=== PATIENT | male | born 1955 | race Caucasian/White ===

== ENCOUNTER 2016-12-27 11:00 | Observation (INO) ==
--- NOTE | 2016-12-27 11:30 | Emergency Department Note ---
Disposition Clinical Impression: Acute cholecystitis Disposition: Admitted As Inpatient Condition: Good Referrals: NO,PCP [Primary Care Provider] - Forms: Work/School Release, ED Satisfaction Letter Abdominal Pain HPI - General Chief Complaint: ED Abdominal Pain Stated Complaint: RUQ abdominal pain/?Gallbladder Time Seen by Provider: 12/27/16 11:26 Source: patient Mode of arrival: ambulatory Limitations: no limitations Nursing Notes Reviewed: Yes Vital Signs Reviewed: Yes - History of Present Illness Pt Subjective Complaint: abdominal pain Onset (ago): day(s) (5) Consistency: constant Location: RUQ Pain Scale: 7 Quality: aching Radiation: none Migration to: no migration Improves with: medication (tylenol) Worsens with: eating Associated symptoms: Reports: nausea Treatments prior to arrival: OTC medications - Related Data Home Medications Medication Instructions Recorded Confirmed Venlafaxine HCl [Venlafaxine HCl 07/30/15 ER] buPROPion HCl [Zyban] 07/30/15 diazePAM [Valium] 07/30/15 Previous Rx's Medication Instructions Recorded Amoxicillin 875 mg PO BID #20 tablet 07/30/15 DiphenhydraMINE [Benadryl] 25 mg PO Q6HR PRN #20 capsule 07/30/15 GuaiFENesin/Codeine [Robitussin 5 ml PO Q6HR PRN #120 ml 07/30/15 w/Codeine] Allergies Allergy/AdvReac Type Severity Reaction Status Date / Time No Known Allergies Allergy Verified 12/27/16 11:20 All systems ED: reviewed and negative except as stated. Constitutional: Denies: fever, chills, weakness Cardiovascular: Denies: chest pain Respiratory: Denies: cough Gastrointestinal: Denies: vomiting, hematemesis, melena Abdominal Pain PMH - Past Medical History Medical history: Reports: no medical history Male Surgical History: Reports: other Psychiatric history: Reports: anxiety, depression - Social History Smoking status: Never smoker Alcohol use: Reports: occasionally Drug use: Reports: none Physical Exam - General Limitations: no limitations General appearance: alert - Head Head exam: atraumatic, normocephalic, normal inspection - Eye Eye exam: Present: normal appearance, PERRL, EOMI - Expanded Eye Exam Pupils: Left: reactive - ENT ENT exam: normal exam, normal oropharynx, mucous membranes moist - Expanded ENT Exam External ear exam: Present: normal external inspection Mouth exam: Present: normal external inspection Teeth exam: Present: normal inspection Throat exam: Present: normal inspection - Neck Neck exam: Present: normal inspection, full ROM, trachea midline - Chest Chest inspection: Present: normal inspection, symmetric chest wall rise - Respiratory Respiratory exam: Present: normal lung sounds bilaterally - Cardiovascular Cardiovascular exam: Present: regular rate, normal rhythm, normal heart sounds - Abdominal Exam Abdominal exam: Present: soft, guarding, normal bowel sounds Abdominal tenderness: Present: RUQ, moderate - Extremities Exam Extremities exam: Present: normal inspection, full ROM. Absent: tenderness, pedal edema - Expanded Upper Extremity Exam Shoulder exam: Present: normal inspection, full ROM Arm exam: Present: normal inspection, full ROM Elbow exam: Present: normal inspection, full ROM Forearm/Wrist exam: Present: normal inspection, full ROM Hand exam: Present: normal inspection, full ROM Vascular exam: Normal: capillary refill, radial pulse - Expanded Lower Extremity Exam Hip/Pelvis exam: Present: normal inspection, full ROM Upper leg exam: Present: normal inspection, full ROM Knee exam: Present: normal inspection, full ROM Lower leg exam: Present: normal inspection, full ROM Ankle exam: Present: normal inspection, full ROM Foot/toe exam: Present: normal inspection, full ROM Neurovascular/Tendon exam: Absent: motor deficit, sensory deficit, tendon deficit - Back Exam Back exam: Present: normal inspection, full ROM. Absent: tenderness - Neurological Exam Neurological exam: Present: alert, oriented X3 - Expanded Neurological Exam Patient oriented to: Present: person, place, time Coma Scale Eye Opening: Spontaneous Coma Scale Motor Response: Obeys Commands Coma Scale Verbal Response: Oriented Coma Scale Total: 15 - Psychiatric Psychiatric exam: Present: normal affect, normal mood - Skin Skin exam: Present: warm, dry, intact, normal color Course Vital Signs Temperature 98.3 F 12/27/16 11:20 Pulse Rate 92 12/27/16 11:20 Respiratory Rate 20 12/27/16 11:20 Blood Pressure 136/85 12/27/16 11:20 O2 Sat by Pulse Oximetry 97 12/27/16 11:20 Temperature 98.3 F 12/27/16 11:20 Pulse Rate 92 12/27/16 11:20 Respiratory Rate 20 12/27/16 11:20 Blood Pressure 136/85 12/27/16 11:20 O2 Sat by Pulse Oximetry 97 12/27/16 11:20 Oxygen Delivery Oxygen Delivery Room Air Abdominal Pain - Differential Diagnosis Differential Diagnosis: Likely: abdominal pain non-specific, constipation, pancreatitis - Medical Records Medical records reviewed: Yes I reviewed the patient's medical records. - Lab Data Lab results reviewed: Yes I reviewed the patient's lab results. Result diagrams: 12/27/16 12:05 12/27/16 12:05 Lab Results 12/27/16 12/27/16 12/27/16 Range/Units 12:05 12:05 12:05 WBC 8.5 (4.3-11.1) K/mcL RBC 5.02 (4.19-5.50) M/mcL Hgb 14.3 (12.9-16.9) g/dL Hct 43.5 (37.5-50.1) % MCV 86.7 (83.0-100.0) fL MCH 28.5 (28.0-33.3) pg MCHC 32.9 (31.6-35.5) g/dL RDW 11.9 (11.5-14.5) % Plt Count 173 (140-400) K/mcL MPV 8.8 L (9.4-12.4) fL Immature Gran % 0.5 (0-4) % Seg Neutrophils % 75.0 % Lymphocytes % 13.2 % Monocytes % 8.9 % Eosinophils % 2.2 % Basophils % 0.2 % Neutrophils # 6.4 (1.6-8.9) K/mcL Lymphocytes # 1.1 (0.6-4.6) K/mcL Monocytes # 0.8 (0.0-1.3) K/mcL Eosinophils # 0.2 (0.0-0.6) K/mcL Basophils # 0.0 (0.0-0.2) K/mcL PT 11.8 (9.4-12.1) Seconds INR 1.1 APTT 28.3 (26.0-36.0) Seconds Sodium 138 (136-145) mEq/L Potassium 4.3 (3.5-4.5) mEq/L Chloride 105 (98-109) mEq/L Carbon Dioxide 29 (19-29) mEq/L BUN 12 (8-26) mg/dL Creatinine 0.95 (0.72-1.25) mg/dL Est GFR ( Amer) > 60 (> 60) Est GFR (Non-Af Amer) > 60 (> 60) BUN/Creatinine Ratio 13 (6-26) Glucose 105 H (70-99) mg/dL Calculated Osmolality 286 (280-300) Calcium 9.4 (8.6-10.8) mg/dL Total Bilirubin 0.7 (0.2-1.2) mg/dL Direct Bilirubin 0.3 (0.0-0.5) mg/dL Indirect Bilirubin 0.4 (0.0-1.2) mg/dL AST 17 (5-34) Units/L ALT 16 (0-55) Units/L Alkaline Phosphatase 80 (38-126) Units/L Serum Total Protein 7.2 (6.0-8.3) g/dL Albumin 3.4 L (3.5-5.0) g/dL Globulin 3.8 H (2.4-3.5) g/dL Albumin/Globulin Ratio 0.9 L (1.1-2.2) Amylase 40 (25-125) Units/L Lipase 21 (8-78) Units/L
[2016-12-27 12:10] LABS: Basophils % 0.2 %; Eosinophils # 0.2 K/mcL (0.0-0.6); Eosinophils % 2.2 %; Hematocrit 43.5 % (37.5-50.1); Hemoglobin 14.3 g/dL (12.9-16.9); Immature Granulocytes % 0.5 % (0-4); Lymphocytes # 1.1 K/mcL (0.6-4.6); Lymphocytes % 13.2 %; Mean Corpuscular HGB Conc 32.9 g/dL (31.6-35.5); Mean Corpuscular Hemoglobin 28.5 pg (28.0-33.3); Mean Corpuscular Volume 86.7 fL (83.0-100.0); Mean Platelet Volume 8.8 fL (9.4-12.4); Monocytes # 0.8 K/mcL (0.0-1.3); Monocytes % 8.9 %; Neutrophils # 6.4 K/mcL (1.6-8.9); Platelet Count 173 K/mcL (140-400); Red Blood Count 5.02 M/mcL (4.19-5.50); Red Cell Distribution Width 11.9 % (11.5-14.5)
[2016-12-27 12:17] LABS: INR 1.1; Prothrombin Time 11.8 Seconds (9.4-12.1)
[2016-12-27 12:19] LABS: Activated Partial Thrombo Time 28.3 Seconds (26.0-36.0)
[2016-12-27 12:24] LABS: Alanine Aminotransferase 16 Units/L (0-55); Albumin 3.4 g/dL (3.5-5.0); Albumin/Globulin Ratio 0.9 (1.1-2.2); Alkaline Phosphatase 80 Units/L (38-126); Amylase 40 Units/L (25-125); Aspartate Amino Transferase 17 Units/L (5-34); BUN/Creatinine Ratio 13 (6-26); Bilirubin,Direct 0.3 mg/dL (0.0-0.5); Bilirubin,Indirect 0.4 mg/dL (0.0-1.2); Bilirubin,Total 0.7 mg/dL (0.2-1.2); Blood Urea Nitrogen 12 mg/dL (8-26); Calcium 9.4 mg/dL (8.6-10.8); Carbon Dioxide 29 mEq/L (19-29); Chloride 105 mEq/L (98-109); Globulin 3.8 g/dL (2.4-3.5); Glucose 105 mg/dL (70-99); Lipase 21 Units/L (8-78); Osmolality,Calculated 286 (280-300); Potassium 4.3 mEq/L (3.5-4.5); Sodium 138 mEq/L (136-145); Total Protein 7.2 g/dL (6.0-8.3); eGFR For African Americans > 60 (> 60); eGFR For Non-African Americans > 60 (> 60)
[2016-12-27 13:25] LABS: Bilirubin,Urine Negative (Negative); Blood,Urine Negative (Negative); Clarity,Urine Clear (Clear); Color,Urine Yellow (Yellow); Glucose,Urine (UA) Normal (Normal); Ketones,Urine Negative (Negative); Leukocyte Esterase,Urine Negative (Negative); Nitrite,Urine Negative (Negative); Protein,Urine Negative (Neg-Trace); Specific Gravity,Urine 1.022 (1.010-1.025); Urobilinogen,Urine Normal (Normal)
--- NOTE | 2016-12-27 14:03 | Anesthesia Evaluation PreOp ---
Date of Encounter: 12/27/16 Time of Encounter: 14:16 - Past History Planned Operation: lap caity Cardiac History: Denies any Significant Hx Pulmonary History: Denies Any Significant HX YARD LABORER History: Denies Any Significant HX Other Medical History: Other (anxiety and depression) Anesthesia History: No Prior Anesthetic Complications, Past Anesthesia (AKS) Alcohol Use: occasionally Drug use: none Medications and Allergies Venlafaxine HCl [Venlafaxine HCl ER] 150 mg PO DAILY 07/30/15 [History] buPROPion HCl [Zyban] 150 mg PO DAILY 07/30/15 [History] Allergies No Known Allergies Allergy (Verified 12/27/16 11:20) - Meds/Allergy Pre-op Review Medications Reviewed: Yes Allergies Reviewed: Yes Beta Blockers on Current Med List: No Anesthesia Results - Labs 12/27/16 12:05 12/27/16 12:05 Anesthesia Exam Selected Entries 12/27/16 11:20 Temperature 98.3 F Pulse Rate 92 Respiratory Rate 20 Blood Pressure 136/85 O2 Sat by Pulse Oximetry 97 Weight: 104kg - HEENT Pupil (Motor): EOMI Mallampati: I Teeth: Normal Oral Opening: Greater than 3 - YARD LABORER LOC: Oriented YARD LABORER Motor: Normal RUE, Normal LUE, Normal RLE, Normal LLE, Normal Face YARD LABORER Sensory: Normal: RUE, LUE, RLE, LLE, Face - Cardiac Rhythm: Regular Murmur: None - Pulmonary Breath Sounds: bilateral Clear Respiratory Effort: Symmetrical Anesthesia Assess/Plan ASA Score: 2 Modified Lackey Scale for Level of Consciousness: Cooperative, oriented, and tranquil Anesthetic Plan: General Monitoring Plan: Standard Monitors Recovery Plan: PACU (Discussed risks of GA, questions answered. Agrees to proceed.)
[2016-12-27] MEDS ORDERED: *HR* FentaNYL (PF) 100 MCG/2 ML VIAL ONE (14:13)
[2016-12-27] MEDS ORDERED: *HR* Propofol 200 MG/20 ML VIAL IVP ONE (14:13)
[2016-12-27] MEDS ORDERED: *HR* Midazolam HCl 2 MG/2 ML VIAL ONE (14:13)
[2016-12-27] MEDS ORDERED: Lidocaine -MPF 4% 5 ML AMPUL ONE (14:18)
[2016-12-27] MEDS ORDERED: Naloxone 0.4 MG/ML INJ IVP PRN ×2 (14:21→17:42)
[2016-12-27] MEDS ORDERED: Ondansetron 4 MG/2 ML VIAL IVP PRN ×2 (14:21→17:42)
[2016-12-27] MEDS ORDERED: Acetaminophen 325 MG TABLET PO PRN ×2 (14:24→17:42)
[2016-12-27] MEDS ORDERED: *HR* HYDROmorphone (PF) 1 MG/ML SYRINGE IVP PRN ×3 (14:24→17:42)
[2016-12-27] MEDS ORDERED: *HR* OxyCODONE/APAP 5/325 TABLET PO PRN (14:24)
[2016-12-27] MEDS ORDERED: 0.9 % Sodium Chloride 1,000 ML IVC SCH (14:30)
--- NOTE | 2016-12-27 14:30 | General Surg History&Physical ---
Date of Encounter: 12/27/16 Time of Encounter: 13:30 Assessment and Plan (1) Acute cholecystitis Current Visit: Yes Status: Acute The assessment and plan as outlined above was discussed with the patient and/or family members who expressed understanding and agreement. All questions were answered. Nothing by mouth IV fluids IV antibiotics- Zosyn Supportive care and pain control Risks, benefits, alternatives, expected outcomes of and reviewed with the patient is in agreement to proceed to the operating room in the next [address] Finch for laparoscopic cholecystectomy with cholangiogram Incentive spirometer every 1 hour while awake PPI daily Ambulates hallways 3 times a day as tolerated (2) Cholelithiases Current Visit: Yes Status: Chronic The assessment and plan as outlined above was discussed with the patient and/or family members who expressed understanding and agreement. All questions were answered. Qualifiers: Cholelithiasis location: gallbladder Cholecystitis presence: with cholecystitis Cholecystitis acuity: acute Biliary obstruction: without biliary obstruction Qualified Code(s): K80.00 - Calculus of gallbladder with acute cholecystitis without obstruction (3) Anxiety and depression Current Visit: Yes Status: Acute The assessment and plan as outlined above was discussed with the patient and/or family members who expressed understanding and agreement. All questions were answered. Resume home medication regimen (4) DVT prophylaxis Current Visit: Yes Status: Acute The assessment and plan as outlined above was discussed with the patient and/or family members who expressed understanding and agreement. All questions were answered. Intermittent compressions stockings to bilateral lower extremities for DVT prophylaxis Ambulate hallways 3 times a day with assistance History of Present Illness Chief complaint: RUQ abdominal pain HPI: Mr. Mckinney is a 61 year old male with a past medical history significant for anxiety and depression. He presented to the emergency department today with complaints of right upper quadrant abdominal pain. He reports that the pain initially started 4 days ago. He states that the pain was severe and was located in his right upper quadrant and radiated straight through into his back. He describes this as a sharp and stabbing pain which lasted for approximately 8 hours. He states that the pain significantly improved until early this morning when he began to have sharp and stabbing pains again. He states he has had 5 episodes similar to this in the past. He does report that the episodes are becoming more frequent and intense over time. He reports nausea but denies any vomiting. Denies any fevers or chills. Denies any changes in bowel habits. Denies any unexplained weight loss. Denies any shortness of breath or chest pain. He does report that is difficult to take a deep breath when he is having severe abdominal pain. Denies any difficulty with urination or changes in the color of his urine. He has had an ultrasound completed which shows evidence of gallbladder wall thickening and pericholecystic fluid. We will admit the patient to the hospital for further workup and treatment. Past Med Surg Social Fam HX - Past Medical History Source: patient Medical history: no medical history Psychiatric history: anxiety, depression - Past Surgical History Surgical History: orthopedic, other (right knee scope), other (tooth extraction , repair of left tear duct) - Social History Smoking Status: Never smoker Smokeless Tobacco Status: No Alcohol use: occasionally (social drinking 1-2 times per month) Drug use: none Current living situation: Home - Independent Activity Level: Independent ambulation - Family History Mother Living Status: Age at : 64 Cause of : strangulated hernia and necrotic bowel Father Age at : 84 Cause of : stomach cancer Hx Family Cancer: Yes (stomach) Brother Living Status: (2 brothers ) Cause of : brother X 2 Hx Family Cardiac Disorders: Yes Hx Family Psychosocial Disorders: Yes (ETOH abuse and trauma from [place]) Medications and Allergies Venlafaxine HCl [Venlafaxine HCl ER] 150 mg PO DAILY 07/30/15 [History] buPROPion HCl [Zyban] 150 mg PO DAILY 07/30/15 [History] Allergies No Known Allergies Allergy (Verified 12/27/16 11:20) Review of Systems All systems PM: reviewed and no additional remarkable complaints except as stated (in the HPI) All systems PM: A 10-system review of systems was performed and is negative for pertinent findings except as documented above in the HPI. General Surgery Exam Initial Vital Signs Temp Pulse Resp BP Pulse Ox 98.3 F 92 20 136/85 97 12/27/16 11:20 12/27/16 11:20 12/27/16 11:20 12/27/16 11:20 12/27/16 11:20 - General physical appearance well developed, well nourished, no distress, moderate pain - Eyes normal ocular movement - ENT normal mucosa, atraumatic, normocephalic - Neck trachea midline - Respiratory normal respiratory effort, clear to auscultation - Cardiovascular Cardiovascular exam: Present: RRR - Abdomen Abdomen general surgery: Present: bowel sounds present, soft, tender Abdominal Tenderness: Present: epigastic, RUQ - Integumentary Integumentary general surgery: Present: warm and dry - Neurologic Present: CN 2-12 grossly intact - Musculoskeletal Present: normal gait, normal posture - Psychiatric Psychiatric general surgery: Present: appropriate, oriented to person, oriented to place, oriented to time, speech is normal, memory intact Results - Labs 12/27/16 12:05 12/27/16 12:05 Abnormal lab results MPV 8.8 fL (9.4-12.4) L 12/27/16 12:05 Glucose 105 mg/dL (70-99) H 12/27/16 12:05 Albumin 3.4 g/dL (3.5-5.0) L 12/27/16 12:05 Globulin 3.8 g/dL (2.4-3.5) H 12/27/16 12:05 Albumin/Globulin Ratio 0.9 (1.1-2.2) L 12/27/16 12:05 Diabetes panel 12/27/16 Range/Units 12:05 Sodium 138 (136-145) mEq/L Potassium 4.3 (3.5-4.5) mEq/L Chloride 105 (98-109) mEq/L Carbon Dioxide 29 (19-29) mEq/L BUN 12 (8-26) mg/dL Creatinine 0.95 (0.72-1.25) mg/dL Glucose 105 H (70-99) mg/dL Calcium 9.4 (8.6-10.8) mg/dL AST 17 (5-34) Units/L ALT 16 (0-55) Units/L Alkaline Phosphatase 80 (38-126) Units/L Albumin 3.4 L (3.5-5.0) g/dL Calcium panel 12/27/16 Range/Units 12:05 Calcium 9.4 (8.6-10.8) mg/dL Albumin 3.4 L (3.5-5.0) g/dL Pituitary panel 12/27/16 Range/Units 12:05 Sodium 138 (136-145) mEq/L Potassium 4.3 (3.5-4.5) mEq/L Chloride 105 (98-109) mEq/L Carbon Dioxide 29 (19-29) mEq/L BUN 12 (8-26) mg/dL Creatinine 0.95 (0.72-1.25) mg/dL Glucose 105 H (70-99) mg/dL Calcium 9.4 (8.6-10.8) mg/dL Adrenal panel 12/27/16 Range/Units 12:05 Sodium 138 (136-145) mEq/L Potassium 4.3 (3.5-4.5) mEq/L Chloride 105 (98-109) mEq/L Carbon Dioxide 29 (19-29) mEq/L BUN 12 (8-26) mg/dL Creatinine 0.95 (0.72-1.25) mg/dL Glucose 105 H (70-99) mg/dL Calcium 9.4 (8.6-10.8) mg/dL Total Bilirubin 0.7 (0.2-1.2) mg/dL AST 17 (5-34) Units/L ALT 16 (0-55) Units/L Alkaline Phosphatase 80 (38-126) Units/L Albumin 3.4 L (3.5-5.0) g/dL All other labs normal. - Imaging US - abdomen: report reviewed Additional studies: Gallbladder Ultrasound 12/27/16 11:45 IMPRESSION: Cholelithiasis. Gallbladder wall thickening and pericholecystic fluid should be correlated with any clinical findings of acute cholecystitis D/ / Luke Menendez MD / Luke Menendez MD Interpreting Provider: Luke Menendez MD - Attending Attestation For this encounter, I have reviewed the DIRECTOR OF STUDENT LIFE or PA documentation, treatment plan, and medical decision making; and I have had face to face time with this patient.
[2016-12-27] MEDS ORDERED: Ondansetron 4 MG/2 ML VIAL ONE (15:12)
[2016-12-27] MEDS ORDERED: Dexamethasone 4 MG/ML VIAL ONE (15:12)
[2016-12-27] MEDS ORDERED: CefOXitin 2,000 MG VIAL IVPB ONE (15:18)
[2016-12-27] MEDS ORDERED: Neostigmine Methylsulfate 3 MG/3 ML SYRINGE ONE (15:48)
[2016-12-27] MEDS ORDERED: Piperacillin/Tazobactam 3.375 GM in D5% in Water (Mini-Bag+) 100 ML IVPB SCH (16:00)
[2016-12-27] MEDS ORDERED: *HR* HYDROmorphone 2 MG/ML SYRINGE ONE (16:07)
--- NOTE | 2016-12-27 16:11 | Operative Note ---
Date of procedure: 12/27/16 Pre-op diagnosis: Acute cholecystitis Post-op diagnosis: same Procedure: Laparoscopic cholecystectomy with cholangiogram Anesthesia: VENUS Surgeon: Garth Finch Estimated blood loss (cc): 5 Specimen: Gallbladder Condition: stable Disposition: same day Procedure in Detail: After informed consent this patient was taken the operating room placed supine position. After adequate sedation anesthesia the abdomen was prepped and draped. A proper timeout was performed. Two towel clamps are placed at the umbilicus and a Veres needle was inserted into the abdomen. A 5 mm incision was made at the umbilicus. A 12 mm incision was made in the subxiphoid region. Two 5 mm incisions were made in the right upper quadrant that were 4 finger breadths and 6 finger breadths below the costal margin. The gallbladder was identified, retracted anteriorly and cephalad, and the infundibulum was skeletonized. The cystic duct was easily identified and was dissected free. A ductotomy was created in the cystic duct. A taut catheter was placed within the cystic duct and clipped. A cholangiogram was performed. Contrast filled the cystic duct, common hepatic duct, hepatic radicles, and the distal common bile duct. There was flow of contrast into the duodenum. Once this was confirmed the clippers removed, the taut catheter was removed as well, and the cystic duct was clipped distally. The cystic duct was then transected with scissors. The gallbladder was resected off the liver surface. There was excellent hemostasis. The gallbladder was then retrieved through the 12 mm cannula site. At this point the abdomen was suctioned dry and the pneumoperitoneum was then evacuated. All ports were removed. The 12 mm cannula site was closed with an 0 Vicryl suture in [id number] fashion. The skin was closed with 4-0 Vicryl suture. Dermabond was placed as well. All instrument counts and needle counts are correct in the operation. She tolerated the procedure well and was transferred to the PACU in stable condition.
--- NOTE | 2016-12-27 17:18 | Anesthesia Evaluation Post Op ---
Date of Encounter: 12/27/16 Time of Encounter: 17:17 - Vital Signs Vital Signs: Vital Signs/O2 Sat, Most Current Temp Pulse Resp BP Pulse Ox 98.8 F 63 16 144/85 94 12/27/16 16:55 12/27/16 17:05 12/27/16 17:05 12/27/16 17:05 12/27/16 17:05 - Lungs Lungs: Clear Ascult./Percussion - Airway Airway: Non-obstructed - Cardiovascular Regular Rate - Mental Status Mental Status: Alert & Oriented, Answers Appropriately - Pain Pain Scale: 3 Pain Scale used: Numeric (1 - 10) - Nausea Vomiting Nausea Vomiting: Not Present - Hydration Hydration: NPO, Has not voided - Discharge PostOp Status: Transfer Patient to floor
[2016-12-27] MEDS ORDERED: 0.9 % Sodium Chloride 1,000 ML ONE (18:16)
[2016-12-27] MEDS: 0.9 % Sodium Chloride 1,000 ML IVC SCH (19:00)
[2016-12-28] MEDS: *HR* OxyCODONE/APAP 5/325 TABLET PO PRN ×3 (00:11→10:43)
[2016-12-28] MEDS: Piperacillin/Tazobactam 3.375 GM in D5% in Water (Mini-Bag+) 100 ML IVPB SCH ×2 (00:11→09:06)
[2016-12-28] MEDS: 0.9 % Sodium Chloride 1,000 ML IVC SCH (06:52)
--- NOTE | 2016-12-28 08:41 | Discharge Summary ---
<Carlos Arizmendi - Last Filed: 12/28/16 09:31> Date of Encounter: 12/28/16 Time of Encounter: 08:37 - Discharge Diagnosis (1) Acute cholecystitis Status: Resolved (2) Cholelithiases Status: Resolved Qualifiers: Cholelithiasis location: gallbladder Cholecystitis presence: with cholecystitis Cholecystitis acuity: acute Biliary obstruction: without biliary obstruction Qualified Code(s): K80.00 - Calculus of gallbladder with acute cholecystitis without obstruction (3) Anxiety and depression Priority: Secondary Status: Chronic - Discharge Medications Prescriptions: OxyCODONE/APAP 5/325 [Percocet 5/325 MG] 1 each PO Q4HR PRN #30 tab PRN Reason: Moderate Pain Docusate [Colace] 100 mg PO BID #30 tab Home Medications: Venlafaxine HCl [Venlafaxine HCl ER] 150 mg PO DAILY 07/30/15 [History] buPROPion HCl [Zyban] 150 mg PO DAILY 07/30/15 [History] Docusate [Colace] 100 mg PO BID #30 tab 12/28/16 [Rx] OxyCODONE/APAP 5/325 [Percocet 5/325 MG] 1 each PO Q4HR PRN #30 tab 12/28/16 [Rx ] Allergies/Adverse Reactions: Allergies No Known Allergies Allergy (Verified 12/27/16 11:20) General Surgery Exam Initial Vital Signs Temp Pulse Resp BP Pulse Ox 98.3 F 92 20 136/85 97 12/27/16 11:20 12/27/16 11:20 12/27/16 11:20 12/27/16 11:20 12/27/16 11:20 - General physical appearance well developed, well nourished, no distress - Eyes normal ocular movement - ENT atraumatic, normocephalic - Neck trachea midline - Respiratory normal expansion, normal respiratory effort, clear to auscultation - Cardiovascular Cardiovascular exam: Present: RRR, no murmurs/rubs/gallops - Abdomen Abdomen general surgery: Present: bowel sounds present, soft, non tender, wound (Trocar incisions are clean dry and intact. No erythema or drainage noted. No evidence of dehiscence. NICOLE drain intact.) - Integumentary Integumentary general surgery: Present: warm and dry - Neurologic Present: CN 2-12 grossly intact - Psychiatric Psychiatric general surgery: Present: appropriate, oriented to person, oriented to place, oriented to time, speech is normal, memory intact Date of admission: 12/27/16 14:37 Primary care physician: Mya Dozier Discharging clinician: Garth Finch Anticipated date of discharge: 12/28/16 - Patient Status Disposition: Home, Self-Care Condition: Good Overall status at discharge: patient is progressing back to baseline - Discharge Instructions Instructions: Laparoscopic Cholecystectomy (DC) Follow Up With: Mya Hwang MD [Primary Care Provider] - Mya Castellon CNP [Advanced Practice Nurse] - 01/08/17 10:00 am Additional Instructions: Do not pull or push more than 15 pounds for 2 weeks. Okay to wear seatbelt Empty NICOLE drain as appropriate Okay to use soap and water on your incisions. Do not soak in a bath or swim for 1 week Prescribed Augmentin twice a day for 5 days as well as Percocet 5/325 every 4 hours when necessary for pain #30tab Keep a list of your home medications with you at all times Follow-up with Kenisha Castellon on 01/04/17. Follow up with the PCP in 1-2 weeks Return to the emergency room or call the clinic if you are experiencing any fevers, chills, nausea, vomiting, worsening abdominal pain or drainage from your incisions. - Diet and Activity Activity: increase activity as tolerated Diet: advance to your usual diet - Hospital Course Hospital course: Mr. Mckinney is a very pleasant 61 year old male who presented to the [facility] emergency department on 12/27/2016 with a past medical history of anxiety and depression with a chief complaint of right upper quadrant abdominal pain for 4 days duration. Patient was seen and evaluated in the emergency room with an ultrasound showing evidence of gallbladder wall thickening along with pericholecystic fluid. Patient was subsequently admitted to and started on supportive care, IV fluids, IV antibiotics and pain control. He is taken to the operating room for a laparoscopic cholecystectomy with cholangiogram with Dr. Finch the same day without palpitation. Cholangiogram yielded no evidence of a common bile duct stone. NICOLE drain was placed. Mr. Mckinney underwent a benign postoperative course to include adequate pain control and toleration of his diet. Patient was subsequently discharged home in stable condition on 12/28/2016 and will follow-up with the Kenisha Castellon on 01/04/17 @ 09:45am along with his PCP in 1-2 weeks. - Time Spent with Patient Total time spent providing and/or coordinating discharge services: <Mya Castellon - Last Filed: 12/28/16 13:33> Date of Encounter: 12/28/16 - Discharge Diagnosis (1) Acute cholecystitis Priority: Primary Status: Resolved (2) Cholelithiases Priority: Primary Status: Resolved Qualifiers: Cholelithiasis location: gallbladder Cholecystitis presence: with cholecystitis Cholecystitis acuity: acute Biliary obstruction: without biliary obstruction Qualified Code(s): K80.00 - Calculus of gallbladder with acute cholecystitis without obstruction (3) Anxiety and depression Priority: Secondary Status: Chronic General Surgery Exam Initial Vital Signs Temp Pulse Resp BP Pulse Ox 98.3 F 92 20 136/85 97 12/27/16 11:20 12/27/16 11:20 12/27/16 11:20 12/27/16 11:20 12/27/16 11:20 Date of admission: 12/27/16 14:37 Primary care physician: Mya [facility] - Hospital Course Hospital course: Mr. Mckinney is a 61 year old male - Time Spent with Patient Total time spent providing and/or coordinating discharge services: Less than 30 minutes
[2016-12-28] MEDS ORDERED: BuPROPion SR (12 HR) 150 MG TABLET PO SCH ×2 (09:00)
[2016-12-28] MEDS ORDERED: Venlafaxine XR (24 HR) 150 MG CAP.ER.24H PO SCH ×2 (09:00)
[2016-12-28 11:22] VITALS: BP 117/71
== END 2016-12-28 15:40 | disposition home or self-care (01) ==
LOC: 3ANU 11:00 → EMEROO 11:00 → 3ANU 14:00
PROVIDERS: ADMIT Surgery; ATTEND Surgery